=== PATIENT | female | born 1975 | race Caucasian/White ===

== ENCOUNTER 2019-07-27 15:33 | Outpatient (CLI) | payer OTHER | END 2019-07-27 23:59 | disposition home or self-care (01) | LOC: CFH 15:33 | PROVIDERS: ATTEND Family Medicine | DX: N20.0 Calculus of kidney (principal); N39.0 Urinary tract infection, site not specified; N18.9 Chronic kidney disease, unspecified | CPT/HCPCS: 76770 ==

== ENCOUNTER 2019-07-30 08:44 | Outpatient (CLI) | payer OTHER | END 2019-07-30 23:59 | disposition home or self-care (01) | LOC: RAD 08:44 | PROVIDERS: ATTEND Family Medicine | DX: R94.5 Abnormal results of liver function studies (principal) | CPT/HCPCS: 76705 ==

== ENCOUNTER 2019-08-06 11:35 | Emergency (ER) | payer OTHER ==
[~2019-08-06] VITALS: Ht 162.6 cm; Wt 79.3 kg
[2019-08-06 12:35] LABS: BASOPHILS # (AUTO) 0.07 x10^3/uL (0-0.1); BASOPHILS % (AUTO) 1 % (0-1); EOSINOPHILS # (AUTO) 0.24 x10^3/uL (0-0.4); EOSINOPHILS % (AUTO) 3 % (1-7); LYMPHOCYTES # (AUTO) 1.68 x10^3/uL (1-3.4); LYMPHOCYTES % (AUTO) 21 % (22-44); MD NO; MEAN CORPUSCULAR HGB CONC 33.1 g/dL (32.4-35.8); MEAN CORPUSCULAR VOLUME 90.4 fL (80-100); MEAN PLATELET VOLUME 7.5 fL (7.4-10.4); MONOCYTES # (AUTO) 0.63 x10^3/uL (0.2-0.8); MONOCYTES % (AUTO) 8 % (2-9); NEUTROPHILS # (AUTO) 5.44 x10^3/uL (1.8-6.8); NEUTROPHILS % (AUTO) 68 % (42-75); PLATELET COUNT 676 x10^3/uL (130-400); RED BLOOD COUNT 4.65 x10^6/uL (3.82-5.3); RED CELL DISTRIBUTION WIDTH 15.6 % (9.6-15.2)
[2019-08-06 12:46] LABS: ALBUMIN 3.4 g/dL (3.4-5.0); ANION GAP 5 mmol/L (5-15); CALCIUM 9.1 mg/dL (8.5-10.1); CHLORIDE 107 mmol/L (98-107)
[2019-08-06 12:49] LABS: ALANINE AMINOTRANSFERASE 62 U/L (12-78); ALKALINE PHOSPHATASE 186 U/L (45-117); BILIRUBIN,TOTAL 0.6 mg/dL (0.2-1.0); CREATININE 0.92 mg/dL (0.55-1.02); TOTAL PROTEIN 7.7 g/dL (6.4-8.2)
--- NOTE | 2019-08-06 13:37 | NUR ---
PT AMBULATORY WITH STEADY GAIT TO ROOM AT THIS TIME.
--- NOTE | 2019-08-06 13:49 | NUR ---
44 Y/O FEMALE PRESENTS TO ED WITH C/O ABDOMINAL PAIN. PER PT "I WAS DIAGNOSED WITH SOME KIDNEY STONES. THEY TOLD ME IF THE PAIN GETS WORSE TO COME TO ER. I GOT AN ULTRASOUND DONE THE OTHER DAY. THE PAIN HAS BEEN FOR ABOUT 2 WEEKS AND HAVE BEEN UNCOMFORTABLE. I HAVE A HIGH TOLERANCE TO PAIN. tHE OTHER DAY I ATE AND IT FELT LIKE A GOLF BALL WAS STUCK IN THE CENTER OF MY CHEST. LIKE NOTHING WAS MOVING OR HEARTBURN." NADN. PT PLACED ON CONT PULSE OX,NIBP. NO C/O N/V/D, TRAUMA, SYNCOPE, CP, SOB. PT JUST COMPLETED DOSE OF ABX. NO C/O DYSURIA OR HEMATURIA
--- NOTE | 2019-08-06 14:17 | NUR ---
PT AMBULATORY WITH STEADY GAIT BACK FROM BATHROOM. UA SENT TO LAB. PT GIVEN WARM BLANKET. CALL LIGHT WITHIN REACH OF PT.
[2019-08-06 14:27] LABS: MICROSCOPIC AUTO
[2019-08-06 14:29] LABS: CULTURE INDICATED? YES
--- NOTE | 2019-08-06 15:08 | NUR ---
PT GIVEN BLANKET. EDMD BEDSIDE.
[2019-08-06 16:06] VITALS: BP 134/78
--- NOTE | 2019-08-06 16:06 | NUR ---
Patient/Caregiver given discharge instructions and they have confirmed that they understand the instructions. Patient ambulatory with steady gait. PT LEFT WITH ALL PERSONAL BELONGINGS.
== END 2019-08-06 16:08 | disposition home or self-care (01) ==
LOC: ED 16:02
DX: R10.84 Generalized abdominal pain (principal); N20.0 Calculus of kidney; F12.10 Cannabis abuse, uncomplicated; Z87.891 Personal history of nicotine dependence
CPT/HCPCS: 36415; 80053; 81001; 83690; 85025; 87086; 99283